=== PATIENT | female | born 1965 | race American Indian/Alaskan Native ===

== ENCOUNTER 2020-10-20 10:47 | Inpatient (IN) | payer OTHER ==
--- NOTE | 2020-10-20 10:57 | Event Note ---
ED Screening Note Date of service: 10/20/20 Time: 10:53 ED Screening Note: 55 y/o female presents complaint of generalized clumsiness with left hand weakness that started 2 days ago. Patient states she thinks she had a stroke 2 days ago. Patient was seen in urgent care was advised to be followed up in the ER patient chose to come today. Patient has a history of hypertension sciatica nerve and arthritis. Patient does not have a primary care provider. She has been following urgent care in [place]. This initial assessment/diagnostic orders/clinical plan/treatment(s) is/are subject to change based on patients health status, clinical progression and re- assessment by fellow clinical providers in the ED. Further treatment and workup at subsequent clinical providers discretion. Patient/guardian urged not to elope from the ED as their condition may be serious if not clinically assessed and managed. Initial orders include: <ROSALBA REHMAN - Last Filed: 10/20/20 10:52> ED Screening Note: This initial assessment/diagnostic orders/clinical plan/treatment(s) is/are subject to change based on patients health status, clinical progression and re- assessment by fellow clinical providers in the ED. Further treatment and workup at subsequent clinical providers discretion. Patient/guardian urged not to elope from the ED as their condition may be serious if not clinically assessed and managed. Initial orders include: called by radiology regarding acute infarction this occurred two days ago, out of tpa window advised Dr. Jorgensen, Dr. Loredo, and charge nurse clement of findings and that pt needs ER ROOM JAIME <GORDON RODRIGUEZ - Last Filed: 10/20/20 15:05>
[2020-10-20 12:04] LABS: Basophils # (Auto) 0.1 K/mm3 (0.0-0.1); Basophils % (Auto) 2.1 % (0.0-1.8); Eosinophils # (Auto) 0.1 K/mm3 (0.0-0.4); Eosinophils % (Auto) 2.3 % (0.0-4.3); Hemoglobin 13.7 gm/dl (10.1-14.3); Lymphocytes # (Auto) 2.4 K/mm3 (1.2-5.4); Lymphocytes % (Auto) 40.4 % (13.4-35.0); Mean Corpuscular HGB Conc 35 % (30-34); Mean Corpuscular Volume 91 fl (79-97); Monocytes # (Auto) 0.5 K/mm3 (0.0-0.8); Monocytes % (Auto) 7.7 % (0.0-7.3); Platelet Count 326 K/mm3 (140-440); Red Blood Count 4.28 M/mm3 (3.65-5.03); Red Cell Distribution Width 13.6 % (13.2-15.2)
[2020-10-20 12:08] LABS: Alanine Aminotransferase 23 units/L (7-56); Albumin 3.8 g/dL (3.9-5); Blood Urea Nitrogen 11 mg/dL (7-17); Calcium 9.5 mg/dL (8.4-10.2); Hemolysis Index 57
[2020-10-20 12:09] LABS: BUN/Creatinine Ratio 18
--- NOTE | 2020-10-20 15:01 | Cat Scan Report ---
CT head/brain wo con INDICATION: Weakness. TECHNIQUE: Routine CT head. All CT scans at this location are performed using CT dose reduction for A CLAY by means of automated exposure control. COMPARISON: None. FINDINGS: Intracranial: Multifocal loss of rodriguez-white matter differentiation seen within the right parietal lob e, right espinoza radiata, and right frontal lobe No intracranial hemorrhage. No extra axial collection . No hydrocephalus. No herniation. Sinuses: Paranasal sinuses and mastoid air cells are essentially clear. Orbits: Globes are intact. Calvarium: No acute fracture. IMPRESSION: 1. Multifocal acute infarctions involving the right frontal lobe, parietal lobe, and centrum semioval e. No hemorrhage. I informed the PA (Haley nava) at 1:55 Signer Name: Bartolome Lepe MD Signed: 10/20/2020 2:57 PM Workstation Name: [id number]
[2020-10-20] MEDS ORDERED: ASPIRIN 325 MG TAB PO ONE (17:42)
--- NOTE | 2020-10-20 17:49 | Emergency Department Report ---
HPI - General Chief Complaint: Neuro Symptoms/Deficit Time Seen by Provider: 10/20/20 17:29 - HPI HPI: Room 37 The patient is a 55-year-old female present with a chief complaint of left-sided weakness. The patient states 2 days ago she noticed that she was clumsy and had difficulty walking and writing secondary to weakness in her left upper extremity and left lower extremity. Patient states she was dropping things from her left hand and dragging her left leg. Patient denies paresthesia, dysphagia or dysarthria. Patient states she has had a headache for 2 days. Of note the patient states she has had a cough for the past 3 months has completed a course of antibiotics but has never had a chest x-ray performed ED Past Medical Hx - Past Medical History Previous Medical History?: Yes Hx Hypertension: Yes Additional medical history: carpal tunnel - Surgical History Additional Surgical History: - Family History Family history: no significant - Social History Smoking Status: Current Every Day Smoker (1/2 pack/day) Substance Use Type: None (Denies illicit drug use), Alcohol (Occasional) ED Review of Systems ROS: Stated complaint: POSS STROKE Other details as noted in HPI Constitutional: no symptoms reported Eyes: denies: eye pain ENT: denies: throat pain Respiratory: cough Cardiovascular: denies: chest pain Endocrine: no symptoms reported Gastrointestinal: denies: abdominal pain Genitourinary: denies: dysuria Musculoskeletal: denies: back pain Neurological: headache, weakness. denies: paresthesias Physical Exam - Physical Exam Vital Signs: Vital Signs 10/20/20 10/20/20 10:50 13:59 Pulse Rate 77 87 Respiratory 18 20 Rate Blood Pressure 179/99 Blood Pressure 164/99 [Right] O2 Sat by Pulse 99 97 Oximetry Physical Exam: GENERAL: The patient is well-developed well-nourished female lying on stretcher not appearing to be in acute distress. [] HEENT: Normocephalic. Atraumatic. Extraocular motions are intact. Patient has moist mucous membranes. NECK: Supple. Trachea midline CHEST/LUNGS: Clear to auscultation. There is no respiratory distress noted. HEART/CARDIOVASCULAR: Regular. There is no tachycardia. There is no gallop rub or murmur. ABDOMEN: Abdomen is soft, nontender. Patient has normal bowel sounds. There is no abdominal distention. SKIN: There is no rash. There is no edema. There is no diaphoresis. NEURO: The patient is awake, alert, and oriented. The patient is cooperative. Cranial nerves II through XII grossly intact with exception of cranial nerve XI on the left patient does not fully raise the left shoulder. Patient holds left upper extremity at 45 degree angle for 10-second count but the arm drifts down but never touches the bed. Patient able to hold right upper extremity at 45 degree angle for full 10-second count without drift. The patient is able to hold left lower extremity at 30 degree angle for 5-second count however the leg does drift down but never comes in contact with the bed. Patient able to hold right lower extremity at 30 degree angle for 5-second count without drift. The patient has normal speech. GCS 15. NIHSS=2 MUSCULOSKELETAL: There is no evidence of acute injury. ED Course Vital Signs 10/20/20 10/20/20 10:50 13:59 Pulse Rate 77 87 Respiratory 18 20 Rate Blood Pressure 179/99 Blood Pressure 164/99 [Right] O2 Sat by Pulse 99 97 Oximetry - Consultations Consultation #1: 10/20/20 Tele-neuro paged-Case discussed with telemetry neurologist. Recommends CTA bra in and neck and admission 10/20/20 20:40 Telemetry neuro paged 10/20/20 20:56 CTA results discussed with Dr. Rosales-recommends initiating heparin drip low intensity no bolus while keeping systolic blood pressure less than 180 ED Medical Decision Making - Lab Data Result diagrams: 10/20/20 11:02 10/20/20 11:02 Laboratory Tests 10/20/20 10/20/20 10/20/20 11:02 11:02 17:45 WBC 5.9 RBC 4.28 Hgb 13.7 Hct 39.0 MCV 91 MCH 32 MCHC 35 H RDW 13.6 Plt Count 326 Lymph % (Auto) 40.4 H Rabun % (Auto) 7.7 H Eos % (Auto) 2.3 Baso % (Auto) 2.1 H Lymph # (Auto) 2.4 Rabun # (Auto) 0.5 Eos # (Auto) 0.1 Baso # (Auto) 0.1 Seg Neutrophils % 47.5 Seg Neutrophils # 2.8 PT 12.4 INR 0.93 APTT 27.5 Thrombin Time 18.6 Sodium 137 Potassium 3.3 L Chloride 99.9 Carbon Dioxide 25 Anion Gap 15 BUN 11 Creatinine 0.6 Estimated GFR > 60 BUN/Creatinine Ratio 18 Glucose 108 H Calcium 9.5 Total Bilirubin 0.30 AST 26 ALT 23 Alkaline Phosphatase 103 Total Protein 7.0 Albumin 3.8 L Albumin/Globulin Ratio 1.2 - EKG Data -: EKG Interpreted by Me EKG shows normal: sinus rhythm Rate: normal - EKG Data When compared to previous EKG there are: previous EKG unavailable Interpretation: other (No ischemic changes seen) - Radiology Data Radiology results: report reviewed (CT head, chest x-ray), image reviewed (CT head, chest x-ray) interpreted by me: Chest x-ray-no focal infiltrates, no pneumothorax. No foreign body seen - Differential Diagnosis CVA Critical care attestation.: If time is entered above; I have spent that time in minutes in the direct care of this critically ill patient, excluding procedure time. ED Disposition Clinical Impression: CVA (cerebral vascular accident) Disposition: DC-09 OP ADMIT IP TO THIS HOSP Is pt being admited?: Yes Does the pt Need Aspirin: No Condition: Fair Referrals: PRIMARY CARE, [Primary Care Provider] - 3-5 Days Time of Disposition: 21:06 (Hospitalist paged (Dr Gupta))
[2020-10-20] MEDS ORDERED: POTASSIUM CHLORIDE ER 20 MEQ TAB PO ONE (17:53)
--- NOTE | 2020-10-20 18:17 | XRay Report ---
CHEST 1 VIEW 10/20/2020 6:06 PM INDICATION / CLINICAL INFORMATION: Cough x3-months. COMPARISON: None available. FINDINGS: SUPPORT DEVICES: None. HEART / MEDIASTINUM: No significant abnormality. LUNGS / PLEURA: No significant pulmonary or pleural abnormality. No pneumothorax. ADDITIONAL FINDINGS: No significant additional findings. IMPRESSION: No acute cardiopulmonary abnormality. Signer Name: Wing Antunez MD Signed: 10/20/2020 6:12 PM Workstation Name: [id number]
[2020-10-20 18:28] LABS: INR 0.93 (0.87-1.13)
[2020-10-20 18:29] LABS: Partial Thromboplastin Time 27.5 Sec. (24.2-36.6)
[2020-10-20 18:30] LABS: Thrombin Time 18.6 Sec. (15.1-19.6)
--- NOTE | 2020-10-20 19:07 | Consultation ---
History of Present Illness History of present illness: [facility] Consult Note # Demographics Consult Type: ED Teleneuro First Name: Edie Last Name: Tadeo Date of : 1965 Age: 55 Gender: female Time of initial page ( Time): 10-20-2020, 16:15 Time of return call ([place] Time): 10-20-2020, 16:20 # HPI Additional History: 55 year-old female presents with left-sided weakness over the last [address] revealed subacute right frontal and parietal ischemic strokes. # PMH-FH-SH Past Medical History: hypertension # Exam Vitals: vital signs reviewed # Data Head CT: subacute ischemic stroke # Assessment Impression: Subacute right frontal-parietal ischemic strokes # Plan Thrombolytic/Intervention: NOT IV Alteplase or IA Intervention Alteplase Exclusion: > 4.5 hours Intraarterial Exclusion: unfavorable imaging/hypodensity Labs: hemoglobin A1c, lipid panel Imaging: (urgency: STAT in ED): CT Angiogram Head and CT Angiogram Neck Imaging: (urgency: routine admission): MRI Brain without contrast Diagnostic Test: echo with bubble study Therapy/Evaluation: NPO until swallow evaluation, PT/OT evaluation, speech/swallow consultation Medication: aspirin 325 mg daily, start statin with goal of LDL < 70 Other: telemetry monitoring, I have discussed my recommendations with the referring provider Disposition: admit Medications and Allergies Allergies Allergy/AdvReac Type Severity Reaction Status Date / Time No Known Allergies Allergy Unverified 10/20/20 10:50 Physical Examination - Vital Signs Vital Signs: Vital Signs Pulse Resp BP Pulse Ox 77 18 164/99 99 10/20/20 10:50 10/20/20 10:50 10/20/20 10:50 10/20/20 10:50 Results - Laboratory Findings CBC and BMP: 10/20/20 11:02 10/20/20 11:02 Abnormal Lab Findings: Abnormal Labs 10/20/20 10/20/20 11:02 11:02 MCHC 35 H Lymph % (Auto) 40.4 H Davis % (Auto) 7.7 H Baso % (Auto) 2.1 H Potassium 3.3 L Glucose 108 H Albumin 3.8 L
--- NOTE | 2020-10-20 20:47 | Cat Scan Report ---
CTA neck without and with intravenous contrast material CLINICAL HISTORY: Left-sided weakness TECHNIQUE: Following acquisition of a timing bolus 0.625 mm thick contiguous axial scans were obtained from aort ic arch to the skull base during rapid bolus intravenous contrast infusion. In addition to evaluation of axial source images multiplanar reconstructions were produced and reviewed for this report. 3 jasmeet ne MIP reconstructions were produced and reviewed. Contrast dose report: Omnipaque 350: 100 ml, administered intravenously All CT examinations performed at this facility utilize modulated dose reduction, iterative reconstruc tion or weight-based dosing, as appropriate, to obtain a radiation dose which is as low as can reason ably be achieved. FINDINGS: Thoracic aorta:No abnormalities are identified along the course of the thoracic aorta..The origins of the great vessels have an unremarkable appearance. Brachiocephalic artery, left common carotid arter y origin and left subclavian artery all have an unremarkable appearance. Right carotid artery: Right common carotid artery has an unremarkable appearance. There is complete o cclusion of the right internal carotid artery within about 18 mm of its origin. Small filling defects are seen within the lumen. This could represent an artifact of turbulent flow versus a thromboemboli c lesion. There is no reconstitution of contrast opacification of the R ICA until the ophthalmic segm ent is opacified likely due to retrograde flow. Left carotid artery: No abnormalities are noted along the course of the left common carotid artery, a t the left carotid bifurcation or along the course of the cervical segments of the LICA. Posterior circulation:The vertebral arteries have an unremarkable appearance. Both vertebral arteries contribute to the basilar artery origin. The basilar artery has an unremarkable appearance. The degree of stenosis, if any, is determined utilizing NASCET like criteria. In this case there is complete occlusion of the cervical segments of the right internal carotid artery. Evaluation of the nonvascular soft tissue structures reveal no abnormality. There is no indication of cervical lymphadenopathy. No abnormalities are seen along the course of the airway. Visualized porti ons of the parotid glands and the submandibular salivary glands have a normal appearance. Thyroid gla nd has a normal appearance. Evaluation of the lung apices reveals no evidence of lung nodule or infil trate. Evaluation of the cervical spine is remarkable for evidence of early ossification of the posterior lo ngitudinal ligament dorsal to the C4, C5 and C6 vertebral bodies. In addition there is evidence of a partially calcified disc herniation at the C4-5 level where decreased AP diameter of the spinal canal is noted. AP diameter of the canal is less than 7 mm consistent with moderate central canal stenosis . Further evaluation with MRA cervical spine is suggested when the patient's condition permits. IMPRESSION: 1. Complete occlusion of the R ICA beginning about 2 cm distal to its origin extending up to the orig in of the right ophthalmic artery. 2. Findings indicate probable disc herniation at C4-5 as described above. 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 IMPORTANT FINDING: Time of Communication (SPORTS REPORTER/CDT): 1939 central standard time Licensed Practitioner Receiving Report: Dr. Connolly of the [facility] emergency de partment. Signer Name: Patrice Herrera MD Signed: 10/20/2020 8:43 PM Workstation Name: [id number]
--- NOTE | 2020-10-20 20:52 | Cat Scan Report ---
CTA head with intravenous contrast CLINICAL HISTORY: Left-sided weakness TECHNIQUE: 0.625 mm thick contiguous axial scans were obtained from the skull base to the skull vertex during r apid bolus administration of intravenous contrast material. Multiplanar reconstructions were produced in the coronal and sagittal planes. In addition 3 plane MIP instructions were produced and reviewed for this report. The axial source images and reconstructed images were reviewed for this report. CONTRAST DOSE REPORT: Omnipaque 350: 100 ml administered intravenously. All CT scans at this location are performed using CT dose reduction for ALARA by means of automated e xposure control. FINDINGS: Internal carotid arteries: Occlusion of the distal cervical intracranial segments of the R ICA is obs erved. Reconstitution of contrast opacification of the R ICA the ophthalmic artery origin. The LICA h as an unremarkable appearance. Middle cerebral arteries: The right M1 segment is decreased size compared to the left likely related to occlusion of the cervical segments and proximal intracranial segments of the R ICA. There is no in dication of large vessel occlusion in the right middle cerebral artery circulation. Anterior cerebral arteries: Asymmetry of the A1 segments anterior cerebral arteries is noted left sli ghtly larger than right. No abnormalities are seen along the course of the A2 segments. Vertebral arteries:Bilaterally symmetrical vertebral arteries are demonstrated. Both vertebral arteri es contribute to the basilar artery origin. Basilar artery: Basilar artery is diminutive in caliber. This appears to be due in large part to feta l origin of both posterior cerebral arteries. Posterior cerebral arteries: origin of the posterior cerebral arteries is demonstrated bilatera lly. Posterior cerebral arteries have an otherwise normal and symmetrical appearance. Dural sinuses: Dural venous sinuses are well demonstrated on this exam. There is no evidence of dural sinus thrombosis. IMPRESSION: 1. Decreased caliber of the M1 segment of the right middle cerebral artery is observed. This is likel y related to complete occlusion of the cervical segments and proximal intracranial segments of the R ICA as described above. Signer Name: Patrice Herrera MD Signed: 10/20/2020 8:47 PM Workstation Name: [id number]
[2020-10-20] MEDS ORDERED: HEPARIN/ 0.45% NACL DRIP 25,000 UNIT/500 ML BAG IV SCH (21:00)
[2020-10-20] MEDS ORDERED: hydrALAZINE 20 MG/1 ML INJ IV ONE (21:32)
[2020-10-20 21:40] LABS: INR 0.92 (0.87-1.13); Partial Thromboplastin Time 26.5 Sec. (24.2-36.6)
[2020-10-20] MEDS ORDERED: MAGNESIUM HYDROXIDE (MOM) ORAL LIQD UDC PO PRN ×2 (21:56)
[2020-10-20] MEDS ORDERED: METOCLOPRAMIDE 10 MG TAB PO PRN (21:56)
[2020-10-20] MEDS ORDERED: ONDANSETRON 4 MG/2 ML INJ IV PRN ×2 (21:56)
[2020-10-20] MEDS ORDERED: PROMETHAZINE 25 MG RECT SUPP PR PRN (21:56)
[2020-10-20] MEDS ORDERED: ACETAMINOPHEN 325 MG TAB PO PRN (21:56)
--- NOTE | 2020-10-20 22:07 | History and Physical Report ---
History of Present Illness Date of examination: 10/20/20 Date of admission: 10/20/20 21:31 Chief complaint: Left sided weakness History of present illness: 55-year-old female with known history of hypertension presenting to the emergency room today complaining of headache and left-sided weakness which has been ongoing for about 2 days. Patient states that she has been having difficulty walking and writing with her left hand secondary to the weakness in the left upper extremity and left lower extremity. She denies any slurred speech, denies any difficulty swallowing, denies any blurry vision and no paresthesia. Patient also indicates that she has had some mild cough on and off over the past 3 months and she had just finished a course of antibiotics that was prescribed for her. She denies any fever, no chills, no chest pain or shortness of breath, no nausea or vomiting and no abdominal pain. Work-up in the emergency room today chest x-ray was unremarkable. Labs were significant for mild hypokalemia of 3.3. CT scan of the head reveals: Multifocal acute infarctions involving the right frontal lobe, parietal lobe and central semiovale, no hemorrhage. CTA of the head and neck reveals: Complete occlusion of the right internal carotid beginning about 2 cm distal to its origin extending up to the origin of the right ophthalmic artery. Findings indicate probable disc herniation at C4-C5. 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 Tele-neurologist was consulted and the recommendation was to commence patient on heparin drip. Patient is being admitted with CVA. Past History Past Medical History: hypertension Past Surgical History: Other (Carpal tunnel surgery) Social history: smoking (Current daily smoker) Family history: no significant family history Medications and Allergies Allergies Allergy/AdvReac Type Severity Reaction Status Date / Time No Known Allergies Allergy Unverified 10/20/20 10:50 Home Medications Medication Instructions Recorded Confirmed Last Taken Type Lisinopril/Hydrochlorothiazide 1 tab PO QDAY 10/20/20 10/20/20 Unknown History [Zestoretic 20-12.5 mg] Active Meds: Active Medications Heparin Sodium/Sodium Chloride (Heparin/ 0.45% Nacl-25,000 Unit/500 Ml) 25,000 unit in 500 mls @ 29 mls/hr IV TITR HAMMDA; Protocol Last Admin: 10/20/20 21:42 Dose: 1,450 units/hr, 29 mls/hr Documented by: Review of Systems Constitutional: no fever, no chills Ears, nose, mouth and throat: no nasal congestion, no sore throat Cardiovascular: no chest pain, no palpitations Respiratory: no cough, no shortness of breath Gastrointestinal: no abdominal pain, no nausea, no vomiting, no diarrhea Genitourinary Female: no pelvic pain, no flank pain, no dysuria, no hematuria Musculoskeletal: no neck pain, no low back pain Integumentary: no rash, no pruritis Neurological: weakness (Left sided ), no headaches, no confusion Psychiatric: no anxiety, no depression Exam - Constitutional Vitals: Temp Pulse Resp BP Pulse Ox 98.2 F 71 15 184/95 99 10/20/20 21:09 10/20/20 21:34 10/20/20 21:09 10/20/20 21:34 10/20/20 21:09 General appearance: Present: no acute distress, well-nourished - EENT Eyes: Present: PERRL, EOM intact. Absent: scleral icterus ENT: hearing intact, clear oral mucosa, dentition normal - Neck Neck: Present: supple, normal ROM - Respiratory Respiratory effort: normal Respiratory: bilateral: CTA - Cardiovascular Rhythm: regular Heart Sounds: Present: S1 & S2. Absent: gallop, systolic murmur, diastolic murmur, rub, click - Extremities Extremities: no ischemia, pulses intact, pulses symmetrical, No edema, normal temperature, normal color, Full ROM Peripheral Pulses: within normal limits - Abdominal General gastrointestinal: Present: soft, non-tender, non-distended, normal bowel sounds. Absent: mass - Integumentary Integumentary: Present: clear, warm, dry. Absent: rash - Musculoskeletal Musculoskeletal: left sided weakness - Psychiatric Psychiatric: appropriate mood/affect, intact judgment & insight, memory intact, cooperative - Neurologic Neurologic: CNII-XII intact, no focal deficits, moves all extremities (With weakness in left upper extremity and left lower extremity.) Results - Labs CBC & Chem 7: 10/20/20 11:02 10/20/20 11:02 Labs: Abnormal lab results 10/20/20 10/20/20 Range/Units 11: 11: MCHC 35 H (30-34) % Lymph % (Auto) 40.4 H (13.4-35.0) % Jewell % (Auto) 7.7 H (0.0-7.3) % Baso % (Auto) 2.1 H (0.0-1.8) % Potassium 3.3 L (3.6-5.0) mmol/L Glucose 108 H (65-100) mg/dL Albumin 3.8 L (3.9-5) g/dL Assessment and Plan - Patient Problems (1) CVA (cerebral vascular accident) Current Visit: Yes Status: Acute Plan to address problem: Patient admitted and placed on telemetry. Will commence patient on aspirin and statin. Patient will be scheduled for echocardiogram and MRI of the brain. Consult placed to neurology for follow-up. (2) Hypertension Current Visit: Yes Status: Acute Plan to address problem: We will resume routine home medications and monitor vital signs closely. (3) DVT prophylaxis Current Visit: Yes Status: Acute Plan to address problem: Patient currently on anticoagulation with heparin. (4) Full code status Current Visit: Yes Status: Acute Plan to address problem: Patient is full code.
[2020-10-21] MEDS: MORPHINE 2 MG/1 ML INJ IV PRN ×2 (04:05→07:47)
[2020-10-21 04:13] LABS: Basophils # (Auto) 0.1 K/mm3 (0.0-0.1); Basophils % (Auto) 1.5 % (0.0-1.8); Eosinophils # (Auto) 0.2 K/mm3 (0.0-0.4); Eosinophils % (Auto) 2.1 % (0.0-4.3); Hematocrit 38.4 % (30.3-42.9); Hemoglobin 13.4 gm/dl (10.1-14.3); Lymphocytes # (Auto) 2.8 K/mm3 (1.2-5.4); Lymphocytes % (Auto) 39.8 % (13.4-35.0); Mean Corpuscular HGB Conc 35 % (30-34); Mean Corpuscular Volume 93 fl (79-97); Monocytes # (Auto) 0.6 K/mm3 (0.0-0.8); Monocytes % (Auto) 8.4 % (0.0-7.3); Platelet Count 309 K/mm3 (140-440); Red Blood Count 4.14 M/mm3 (3.65-5.03); Red Cell Distribution Width 13.6 % (13.2-15.2)
[2020-10-21 04:22] LABS: INR 0.94 (0.87-1.13)
[2020-10-21 04:40] LABS: Blood Urea Nitrogen 10 mg/dL (7-17); Calcium 9.3 mg/dL (8.4-10.2); Chol/HDL Ratio 4.73 %; HDL Cholesterol 46 mg/dL (40-59); Hemolysis Index 8; LDL Cholesterol,Direct 169 mg/dL (50-130)
[2020-10-21 04:41] LABS: BUN/Creatinine Ratio 17
[2020-10-21] MEDS: ACETAMINOPHEN 325 MG TAB PO PRN ×3 (06:26→21:21)
--- NOTE | 2020-10-21 08:36 | Consultation ---
History of Present Illness Consult date: 10/21/20 Reason for Consult: CVA Chief complaint: Left hand weakness History of present illness: 55 yo female with htn, sciatica, tobacco abuse, who presents with c/o 2 days (prior to ED arrival) of left hand/arm weakness. NCHCT revealed multiple infarcts in the right cerebral hemisphere with an ipsilateral RADHA occlusion on CTA. Patient was initiated on a no bolus, low dose Heparin gtt by telestroke neurologist. Past History Past Medical History: hypertension, other (sciatica) Past Surgical History: Other (Carpal tunnel surgery) Social history: smoking (Current daily smoker) Family history: no significant family history Medications and Allergies Allergies Allergy/AdvReac Type Severity Reaction Status Date / Time No Known Allergies Allergy Unverified 10/20/20 10:50 Home Medications Medication Instructions Recorded Confirmed Last Taken Type Lisinopril/Hydrochlorothiazide 1 tab PO QDAY 10/20/20 10/20/20 Unknown History [Zestoretic 20-12.5 mg] Active Meds: Active Medications Acetaminophen (Acetaminophen 325 Mg Tab) 650 mg PO Q4H PRN PRN Reason: Pain MILD(1-3)/Fever >100.5/FRITZ Last Admin: 10/21/20 06:26 Dose: 650 mg Documented by: Aspirin (Aspirin 325 Mg Tab) 325 mg PO QDAY [facility] Atorvastatin Calcium (Atorvastatin 40 Mg Tab) 40 mg PO QHS [facility] Last Admin: 10/20/20 22:30 Dose: 40 mg Documented by: Bisacodyl (Bisacodyl 10 Mg Rect Supp) 10 mg NV QDAY PRN PRN Reason: Constipation Heparin Sodium/Sodium Chloride (Heparin/ 0.45% Nacl-25,000 Unit/500 Ml) 25,000 unit in 500 mls @ 29 mls/hr IV TITR [facility]; Protocol Last Titration: 10/21/20 06:21 Dose: 1,350 units/hr, 27 mls/hr Documented by: Magnesium Hydroxide (Magnesium Hydroxide (Mom) Oral Liqd Udc) 30 ml PO Q4H PRN PRN Reason: Constipation Metoclopramide HCl (Metoclopramide 10 Mg Tab) 10 mg PO Q6H PRN PRN Reason: Nausea And Vomiting Morphine Sulfate (Morphine 2 Mg/1 Ml Inj) 2 mg IV Q4H PRN PRN Reason: Pain, Moderate (4-6) Last Admin: 10/21/20 07:47 Dose: 2 mg Documented by: Ondansetron HCl (Ondansetron 4 Mg/2 Ml Inj) 4 mg IV Q8H PRN PRN Reason: Nausea And Vomiting Promethazine HCl (Promethazine 25 Mg Rect Supp) 25 mg NV Q6H PRN PRN Reason: Nausea And Vomiting Sodium Chloride (Sodium Chloride 0.9% 10 Ml Flush Syringe) 10 ml IV BID [facility] Last Admin: 10/20/20 22:30 Dose: 10 ml Documented by: Sodium Chloride (Sodium Chloride 0.9% 10 Ml Flush Syringe) 10 ml IV PRN PRN PRN Reason: LINE FLUSH Review of Systems All systems: negative (as per HPI;) Physical Examination - Vital Signs Vital Signs: Vital Signs Pulse Resp BP Pulse Ox 77 18 164/99 99 10/20/20 10:50 10/20/20 10:50 10/20/20 10:50 10/20/20 10:50 - Physical Exam Narrative exam: Gen: nad, well-nourished; Head: normocephalic; Eyes: no gaze deviation; no ptosis; ENT: normal vocalization; CVS: warm and well-perfused; Pulm: no respiratory distress; GI: appears non-distended, protuberant; Ext: no cyanosis at distal extremities; Skin: no acute rash or hives at distal extremities; Heme: no pathologic bruising at distal extremities; Neuro: alert, oriented to name, age, month, year, , no dysarthria, no aphasia, CN 2 - PERRL, visual reeder intact, CN 3, 4, 6 - EOMI, CN 5 - facial sensation symmetric to light touch, CN 7 - facial movement symmetric, CN 8 - hearing grossly intact, CN 9, 10 - uvula midline, CN 11 - shrug symmetric, CN 12 - tongue midline; Motor - at least 4/5 in all exts w/ left arm drift; left plantar flexion is 4/5; Sensory - light touch decreased at left hand/fingers, Cerebellar - fnf /hts intact, +dysdiadochokinesia; Gait - deferred secondary to fall risk; NIHSS (1a.) Level of Consciousness:0 (1b.) LOC Questions:0 (1c.) LOC Commands:0 (2.) Best Gaze:0 (3.) Visual:0 (4.) Facial Palsy:0 (5a.) Motor Arm, Left:1 (5b.) Motor Arm, Right:0 (6a.) Motor Leg, Left:1 (6b.) Motor Leg, Right:0 (7.) Limb Ataxia:0 (8.) Sensory:1 (9.) Best Language:0 (10.) Dysarthria:0 (11.) Extinction and Inattention:0 NIHSS Total Score: 3 Results - Laboratory Findings CBC and BMP: 10/21/20 03:42 10/21/20 03:42 Abnormal Lab Findings: Abnormal Labs 10/20/20 10/20/20 10/21/20 11:02 11:02 03:42 MCHC 35 H 35 H Lymph % (Auto) 40.4 H 39.8 H Lea % (Auto) 7.7 H 8.4 H Baso % (Auto) 2.1 H Potassium 3.3 L Glucose 108 H Albumin 3.8 L Triglycerides Cholesterol LDL Cholesterol Direct 10/21/20 03:42 MCHC Lymph % (Auto) Lea % (Auto) Baso % (Auto) Potassium 3.4 L Glucose 122 H Albumin Triglycerides 153 H Cholesterol 218 H LDL Cholesterol Direct 169 H Assessment and Plan 55 yo female with htn, sciatica, tobacco abuse who presents with acute ischemic strokes involving the right frontal / parietal hemispheres in the setting of a RADHA occlusion. 1. Acute Ischemic Stroke: stopped heparin gtt; ASA 325 mg PO qday, 1st dose today (to be given 1 hour after Heparin gtt is stopped), Plavix 75 mg po qday x 21 days, 1st dose tomorrow; MRI Brain w/o contrast, TTEcho, confirm LDL/TSH, telemetry, SBP goal 160-200 mmHg and DBP 80-100 mmHg for now. Statin therapy for a goal LDL of 70, when patient passes swallow evaluation. PT/OT/ST/Swallow evaluation. Long-term risk-factor modification, including a strict diet/exercise regimen for secondary stroke prophylaxis. 2. Hypertension - goal SBP 160-200 mmHg and DBP 80-100 mmHg for 48 more hours. 3. RADHA Occlusion - antiplatelet/statin therapy. 4. Left-sided weakness / left hand numbness - pt/ot evaluation/monitoring. 5. Tobacco Abuse - smoking cessation program via pcp. Shamar Zacarias MD Neurology
[2020-10-21] MEDS: ASPIRIN 325 MG TAB PO SCH (09:59)
--- NOTE | 2020-10-21 13:07 | Vascular Lab Report ---
"DUPLEX DOPPLER ULTRASOUND CAROTID, BILATERAL INDICATION / CLINICAL INFORMATION: stroke. COMPARISON: None available. FINDINGS: RIGHT CAROTID: Occluded Right Vertebral Artery: Antegrade flow. LEFT CAROTID: - PLAQUE ESTIMATE: < 50% - CCA velocity: 74 cm/sec. - ICA peak systolic velocity: 75 cm/sec. - ICA/CCA PSV Ratio: 1.0 Left Vertebral Artery: Antegrade flow. IMPRESSION: 1. Right Internal Carotid Artery: Occluded in its midportion 2. Left Internal Carotid Artery: Less than 50% diameter stenosis. Velocity criteria are extrapolated from diameter data as defined by the Society of Radiologists in [facility] Consensus Conference, Radiology 2003; 229;340-346. Degree of || ICA PSV || Plaque || ICA/CCA Stenosis (%) || (cm/sec) || estimate (%) || PSV Ratio Normal ............. || ...<125........... || ...None......... || ...<2.0 <50................... || ...<125........... || ......<50......... || ...<2.0 50-69................ || ..125-230...... || ......>50......... || 2.0-4.0 >70 but <100... || >230.............. || .......>50........ || ...>4.0 Near occlusion || High/low/none || ...visible....... || variable Total occlusion || ....None........... || ..no lumen... || ....N/A Signer Name: Rishi LOPES Signed: 10/21/2020 1:02 PM Workstation Name: [id number]"
--- NOTE | 2020-10-21 15:46 | Magnetic Resonance Report ---
MR brain wo con INDICATION / CLINICAL INFORMATION: 55 years Female; MAIN. TECHNIQUE: Multiplanar, multisequence MR images of the brain were obtained. Motion artifact COMPARISON: 10/20/2020-CT FINDINGS: BRAIN / INTRACRANIAL CONTENTS: Patchy areas of ischemia are seen in the watershed distribution of the right cerebral hemisphere. These findings are positive on ADC map, suggesting they are acute/subacut e in age, most likely related to findings on patient's recent CTA of the neck, which demonstrated an occluded right internal carotid artery. Otherwise, no acute hemorrhage, mass effect, midline shift, hydrocephalus, or acute, large territori al infarct. No chronic infarct or atrophy. No significant white matter abnormality. CRANIOCERVICAL JUNCTION: No significant abnormality. VASCULAR FLOW-VOIDS: Hyperintense T2 signal seen in the right internal carotid artery suggesting slow or absent flow-this finding is confirmed on recent CTA from 10/20/2020, as well. ORBITS: No significant abnormality of visualized orbits. SINUSES / MASTOIDS: Mild to moderate mucosal thickening seen in the ethmoids. There is partial opacif ication of the sphenoid sinuses. ADDITIONAL FINDINGS: None. IMPRESSION: 1. Ischemic changes in the watershed distribution of the right cerebral hemisphere as described above . Signer Name: Daryn Quiñones MD, III Signed: 10/21/2020 3:41 PM Workstation Name: [id number]
[2020-10-21] MEDS ORDERED: ACETAMINOPHEN 325 MG/10.15 ML ORAL LIQD UNIT DOSE ONE (16:47)
[2020-10-21] MEDS ORDERED: hydrALAZINE 20 MG/1 ML INJ IV PRN (18:30)
--- NOTE | 2020-10-21 18:53 | Progress Note ---
Assessment and Plan Assessment and Plan - Patient Problems (1) CVA (cerebral vascular accident) Current Visit: Yes Status: Acute Plan to address problem: Patient admitted and placed on telemetry. Will commence patient on aspirin and statin. Patient will be scheduled for echocardiogram and MRI of the brain. Consult placed to neurology for follow-up. (2) Hypertension Current Visit: Yes Status: Acute Plan to address problem: We will resume routine home medications and monitor vital signs closely. (3) DVT prophylaxis Current Visit: Yes Status: Acute Plan to address problem: Patient currently on anticoagulation with heparin. (4) Full code status Current Visit: Yes Status: Acute Plan to address problem: Patient is full code. - Patient Problems (1) CVA (cerebral vascular accident) Current Visit: Yes Status: Acute Qualifiers: CVA mechanism: thrombosis Laterality of affected vessel: right Plan to address problem: Right cerebral ischemia in the watershed area (2) Hypertension Current Visit: Yes Status: Chronic Qualifiers: Hypertension type: essential hypertension Qualified Code(s): I10 - Essential (primary) hypertension Plan to address problem: Blood pressure poorly controlled Add valsartan and stop the lisinopril Add Coreg if necessary (3) Hyperlipidemia Current Visit: Yes Status: Chronic Qualifiers: Hyperlipidemia type: mixed hyperlipidemia Qualified Code(s): E78.2 - Mixed hyperlipidemia Plan to address problem: Continue statin (4) DVT prophylaxis Current Visit: Yes Status: Acute Plan to address problem: On heparin and GI prophylaxis Subjective Date of service: 10/21/20 Principal diagnosis: Acute CVA Interval history: 55 yo female with htn, sciatica, tobacco abuse, who presents with c/o 2 days (prior to ED arrival) of left hand/arm weakness. NCHCT revealed multiple infarcts in the right cerebral hemisphere with an ipsilateral RADHA occlusion on CTA. Patient was initiated on a no bolus, low dose Heparin gtt by telestroke neurologist. Able to move all 4 extremities MRI pending Objective - Constitutional Vitals: Vital Signs - 12hr 10/21/20 10/21/20 10/21/20 07:00 07:50 07:51 Temperature 98.2 F Pulse Rate 69 74 Respiratory 14 15 16 Rate Blood Pressure 182/92 Blood Pressure 182/92 [Right] O2 Sat by Pulse 95 100 100 Oximetry 10/21/20 10/21/20 10/21/20 08:00 09:00 10:00 Temperature Pulse Rate 85 109 H 81 Respiratory 14 13 12 Rate Blood Pressure 182/92 171/79 176/80 Blood Pressure [Right] O2 Sat by Pulse 98 99 Oximetry 10/21/20 10/21/20 10/21/20 11:00 14:22 14:26 Temperature 97.9 F Pulse Rate 58 L 67 Respiratory 13 17 Rate Blood Pressure 158/80 Blood Pressure 173/86 [Right] O2 Sat by Pulse 99 99 100 Oximetry 10/21/20 10/21/20 10/21/20 15:00 16:00 16:20 Temperature 97.9 F Pulse Rate 60 66 68 Respiratory 16 14 14 Rate Blood Pressure 173/90 168/85 168/85 Blood Pressure 173/86 [Right] O2 Sat by Pulse 97 96 97 Oximetry 10/21/20 10/21/20 10/21/20 16:30 16:40 16:50 Temperature Pulse Rate 82 75 72 Respiratory 16 16 19 Rate Blood Pressure 168/85 168/85 168/85 Blood Pressure [Right] O2 Sat by Pulse 99 97 97 Oximetry 10/21/20 10/21/20 10/21/20 17:00 17:10 17:20 Temperature Pulse Rate 79 65 74 Respiratory 17 13 16 Rate Blood Pressure 168/85 168/85 168/85 Blood Pressure [Right] O2 Sat by Pulse 99 99 100 Oximetry 10/21/20 17:42 Temperature 98.3 F Pulse Rate 81 Respiratory 18 Rate Blood Pressure Blood Pressure 175/94 [Right] O2 Sat by Pulse 98 Oximetry General appearance: Present: no acute distress, well-nourished - EENT Eyes: PERRL, EOM intact ENT: hearing intact, clear oral mucosa Ears: bilateral: normal - Neck Neck: supple, normal ROM - Respiratory Respiratory effort: normal Respiratory: bilateral: CTA - Breasts Breasts: normal - Cardiovascular Heart rate: 78 Rhythm: regular Heart Sounds: Present: S1 & S2. Absent: gallop, rub Extremities: no ischemia, pulses intact, No edema, normal color, Full ROM - Gastrointestinal General gastrointestinal: Present: soft, non-tender, non-distended, normal bowel sounds - Genitourinary Female genitourinary: normal - Integumentary Integumentary: clear, warm, dry - Musculoskeletal Musculoskeletal: 1, strength equal bilaterally - Neurologic Neurologic: moves all extremities, gait normal, other (Slight weakness in the left lower extremity) - Psychiatric Psychiatric: memory intact, appropriate mood/affect, intact judgment & insight - Allied health notes Allied health notes reviewed: nursing, case management - Labs CBC & Chem 7: 10/21/20 03:42 10/21/20 03:42 Labs: Abnormal lab results 10/21/20 10/21/20 10/21/20 Range/Units 03:42 03:42 10:35 MCHC 35 H (30-34) % Lymph % (Auto) 39.8 H (13.4-35.0) % [place] % (Auto) 8.4 H (0.0-7.3) % Heparin Anti-Xa Level 0.74 H (0.3-0.7) U.I./ml Potassium 3.4 L (3.6-5.0) mmol/L Glucose 122 H (65-100) mg/dL Triglycerides 153 H (2-149) mg/dL Cholesterol 218 H (50-199) mg/dL LDL Cholesterol Direct 169 H (50-130) mg/dL
[2020-10-22] MEDS: ACETAMINOPHEN 325 MG TAB PO PRN (07:57)
[2020-10-22] MEDS: ASPIRIN 325 MG TAB PO SCH (09:13)
[2020-10-22] MEDS ORDERED: CLOPIDOGREL 75 MG TAB PO SCH (10:00)
--- NOTE | 2020-10-22 14:25 | Discharge Summary ---
Providers - Providers Date of Admission: 10/20/20 21:31 Date of discharge: 10/22/20 Attending physician: RADHA BUI 10/20/20 Consult to Physician [CONS] Routine Comment: Consulting Provider: RAYMUNDO LANTIGUA Physician Instructions: Reason For Exam: CVA 10/20/20 21:56 Consult to Dietitian/Nutrition [CONS] Routine Physician Instructions: Reason For Exam: Reason for Consult: Nutrition Recommendations Reason for Consult: Diet education Occupational Therapy Evaluate and Treat [CONS] Routine Comment: Reason For Exam: Neuro deficits Physical Therapy Evaluation and Treat [CONS] Routine Comment: Reason For Exam: Neuro deficits 10/20/20 21:57 Speech Therapy Evaluation and Treat [CONS] Routine Reason For Exam: swallow eval Primary care physician: MOLDER CLOSED MOLDS Hospitalization Condition: Fair Procedures: MR brain Ischemic changes in the watershed distribution of the right cerebral hemisphere as described Echocardiogram LV ejection fraction 55 to 60% Left ventricular systolic function is normal Carotid duplex scan Left internal carotid artery less than 50% diameter stenosis right internal carotid artery occluded in its midportion CT head Complete occlusion of the right internal carotid artery beginning about 2 cm distal to its origin extending up to the origin of the right ophthalmic artery Findings indicate probable disc herniation at C4-C5 as indicated above in addition there is 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 Hospital course: 55 yo female with htn, sciatica, tobacco abuse, who presents with c/o 2 days (prior to ED arrival) of left hand/arm weakness. NCHCT revealed multiple infarcts in the right cerebral hemisphere with an ipsilateral RADHA occlusion on CTA. Patient was initiated on a no bolus, low dose Heparin gtt by telestroke neurologist. Subjective Date of service: 10/22/20 Principal diagnosis: Acute CVA Interval history: 55 yo female with htn, sciatica, tobacco abuse, who presents with c/o 2 days (prior to ED arrival) of left hand/arm weakness. NCHCT revealed multiple infarcts in the right cerebral hemisphere with an ipsilateral RADHA occlusion on CTA. Patient was initiated on a no bolus, low dose Heparin gtt by telestroke neurologist. Able to move all 4 extremities MRI pending Assessment and Plan - Patient Problems (1) CVA (cerebral vascular accident) Current Visit: Yes Status: Acute Plan to address problem: Patient has ischemic changes in the watershed area of the right cerebral hemisphere Patient being discharged on aspirin and Plavix and physical therapy (2) Hypertension Current Visit: Yes Status: Acute Plan to address problem: Valsartan 160 twice daily (3) DVT prophylaxis Current Visit: Yes Status: Acute Plan to address problem: Patient currently on anticoagulation with heparin. (4) Full code status Current Visit: Yes Status: Acute Plan to address problem: Patient is full code. - Patient Problems (1) CVA (cerebral vascular accident) Current Visit: Yes Status: Acute Qualifiers: CVA mechanism: thrombosis Laterality of affected vessel: right Plan to address problem: Right cerebral ischemia in the watershed area (2) Hypertension Current Visit: Yes Status: Chronic Qualifiers: Hypertension type: essential hypertension Qualified Code(s): I10 - Essential (primary) hypertension Plan to address problem: Blood pressure poorly controlled Add valsartan and stop the lisinopril Add Coreg if necessary (3) Hyperlipidemia Current Visit: Yes Status: Chronic Qualifiers: Hyperlipidemia type: mixed hyperlipidemia Qualified Code(s): E78.2 - Mixed hyperlipidemia Plan to address problem: Continue statin (4) DVT prophylaxis Current Visit: Yes Status: Acute Plan to address problem: On heparin and GI prophylaxis Disposition: DC-01 TO HOME OR SELFCARE - Discharge Diagnoses (1) CVA (cerebral vascular accident) Status: Acute Qualifiers: CVA mechanism: thrombosis Laterality of affected vessel: right Comment: Has slight left lower extremity weakness But otherwise normal Neurology consult appreciated Patient being discharged on aspirin and Plavix (2) Hypertension Status: Chronic Qualifiers: Hypertension type: essential hypertension Qualified Code(s): I10 - Essential (primary) hypertension Comment: Valsartan 160 mg twice a day (3) Hyperlipidemia Status: Chronic Qualifiers: Hyperlipidemia type: mixed hyperlipidemia Qualified Code(s): E78.2 - Mixed hyperlipidemia Comment: Continue statins (4) DVT prophylaxis Status: Acute Comment: On heparin and GI prophylaxis Core Measure Documentation - Palliative Care Palliative Care/ Comfort Measures: Not Applicable - Core Measures Any of the following diagnoses?: none Exam - Constitutional Vitals: Temp Pulse Resp BP Pulse Ox 97.7 F 76 18 151/89 92 10/22/20 08:13 10/22/20 12:00 10/22/20 08:13 10/22/20 08:13 10/22/20 08:13 General appearance: Present: no acute distress, well-nourished - EENT Eyes: Present: PERRL ENT: hearing intact, clear oral mucosa - Neck Neck: Present: supple, normal ROM - Respiratory Respiratory effort: normal Respiratory: bilateral: CTA - Cardiovascular Rhythm: regular (80) Heart Sounds: Present: S1 & S2. Absent: rub, click - Extremities Extremities: pulses symmetrical, No edema Peripheral Pulses: within normal limits - Abdominal General gastrointestinal: Present: deferred, soft, non-tender, non-distended, normal bowel sounds Female genitourinary: Present: normal - Integumentary Integumentary: Present: clear, warm, dry - Musculoskeletal Musculoskeletal: gait normal, strength equal bilaterally - Psychiatric Psychiatric: appropriate mood/affect, intact judgment & insight - Neurologic Neurologic: CNII-XII intact, moves all extremities - Allied Health Allied health notes reviewed: nursing, case management Plan Follow up with: PRIMARY CAREMD [Primary Care Provider] - 3-5 Days SRIDHAR MIJARES MD [Staff Physician] - 7 Days
[2020-10-22 14:37] VITALS: BP 156/102
[2020-10-22] MEDS ORDERED: VALSARTAN 160MG TAB PO ONE (14:55)
== END 2020-10-22 15:18 | disposition home health service (06) | DRG 65 ==
LOC: ED 10:47 → 4A 21:31
PROVIDERS: ADMIT Internal Medicine Geriatric Medicine; ATTEND Internal Medicine
DX: I63.9 Cerebral infarction, unspecified (principal); G81.94 Hemiplegia, unspecified affecting left nondominant side; Z98.891 History of uterine scar from previous surgery; F17.210 Nicotine dependence, cigarettes, uncomplicated; I10 Essential (primary) hypertension; R29.703 NIHSS score 3; E78.2 Mixed hyperlipidemia; M54.30 Sciatica, unspecified side; Z79.899 Other long term (current) drug therapy
CPT/HCPCS: 36415; 70450; 70496; 70498; 70551; 71045; 80048; 80053; 80061; 85025; 85520; 85610; 85670; 85730; 93005; 93306; 93880; 99406; G0378; A9270-GY; J0360; J1644; J2270; Q9967

== ENCOUNTER 2020-11-05 22:04 | Observation (INO) | payer OTHER ==
--- NOTE | 2020-11-05 22:18 | Event Note ---
ED Screening Note Date of service: 11/05/20 Time: 22:17 ED Screening Note: 55-year-old female with a history of a stroke about 2 weeks ago presents to the ER today with complaints of strokelike symptoms. She states that started about 1 hour ago while she was in the shower. She reports slurred speech, drooling and left-sided weakness. She states that she fell twice after her symptoms started and hit her head. She is on Plavix and she has been compliant with it. This initial assessment/diagnostic orders/clinical plan/treatment(s) is/are subject to change based on patients health status, clinical progression and re- assessment by fellow clinical providers in the ED. Further treatment and workup at subsequent clinical providers discretion. Patient/guardian urged not to elope from the ED as their condition may be serious if not clinically assessed and managed. Initial orders include: Stroke order set
--- NOTE | 2020-11-05 22:43 | Consultation ---
History of Present Illness - Reason for Consult Consult date: 11/05/20 - History of Present Illness [facility] Consult Note # Demographics Consult Type: 0-6 hour Stroke First Name: Edie Last Name: Tadeo Date of : 1965 Age: 55 Gender: female Time of initial page ([place] Time): 11-05-2020, 20:22 Time of return call ([place] Time): 11-05-2020, 20:39 # HPI Additional History: 55yo woman who states she went to the bathroom at around 830PM or so. She fell and hit the left side of her head as well as her arm and leg. Symptoms are improved. Associated Symptoms: headache # Scores Time of exam and NIHSS ([facility]): 11-05-2020, 20:32 Level of Consciousness 1a: [0] = Alert; keenly responsive LOC Questions 1b: [0] = Answers both questions correctly LOC Commands 1c: [0] = Performs both tasks correctly Best Gaze 2: [0] = Normal Visual 3: [0] = No visual loss Facial Palsy 4: [0] = Normal symmetrical movements Motor Arm Left 5a: [0] = No drift Motor Arm Right 5b: [0] = No drift Motor Leg Left 6a: [1] = Drift Motor Leg Right 6b: [0] = No drift Limb Ataxia 7: [0] = Absent Sensory 8: [0] = Normal Best Language 9: [0] = No aphasia Dysarthria 10: [0] = Normal Extinction and Inattention 11: [0] = No abnormality NIHSS Total: 1 # PMH-FH-SH Past Medical History: hypertension, stroke, residual left sided weakness, stroke was 2 weeks ago # Exam Vitals: vital signs reviewed # Assessment Impression: Acute Ischemic Stroke, vs uncovering of old deficit due to metabolic or infection issue # Plan Thrombolytic/Intervention: NOT IV Alteplase or IA Intervention Alteplase Exclusion (<3 hour window): non-disabling deficit, stroke within 3 months Intraarterial Exclusion: clinically consistent with small vessel disease, non- disabling Blood Pressure Target: SBP < 220, SBP > 120 Labs: ESR, hemoglobin A1c, lipid panel, urine drug screen, ua Imaging: (urgency: STAT in ED): CT Angiogram Head and CT Angiogram Neck Imaging: (urgency: routine admission): MRI Brain without contrast Diagnostic Test: echo without bubble study Therapy/Evaluation: NPO until swallow evaluation, PT/OT evaluation, speech/swallow consultation Medication: aspirin 81 mg PLUS clopidogrel (Plavix) 75 mg for 21 days, then monotherapy therafter DVT Prophylaxis: SCD, chemical DVT prophylaxis Other: permissive hypertension, telemetry monitoring, I have discussed my recommendations with the referring provider Disposition: admit Medications and Allergies Allergies Allergy/AdvReac Type Severity Reaction Status Date / Time No Known Allergies Allergy Unverified 10/20/20 10:50 Home Medications Medication Instructions Recorded Confirmed Last Taken Type Aspirin 325 mg PO QDAY #30 tablet 10/22/20 Unknown Rx AtorvaSTATin [Lipitor] 40 mg PO QHS #30 tablet 10/22/20 Unknown Rx Clopidogrel [Plavix] 75 mg PO QDAY #30 tablet 10/22/20 Unknown Rx Valsartan [Diovan] 160 mg PO BID #60 tablet 10/22/20 Unknown Rx Exam - Constitutional Vitals: Temp Pulse Resp BP Pulse Ox 97.9 F 83 18 176/99 99 11/05/20 22:19 11/05/20 22:19 11/05/20 22:19 11/05/20 22:19 11/05/20 22:19
--- NOTE | 2020-11-05 22:45 | Emergency Department Report ---
ED Neuro Deficit HPI - General Chief Complaint: Neuro Symptoms/Deficit Stated Complaint: POSSIBLE STROKE Time Seen by Provider: 11/05/20 22:22 Source: patient Mode of arrival: Ambulatory Limitations: No Limitations - History of Present Illness Initial Comments: Patient is a 55-year-old female who presents emergency room with complaints of left-sided weakness, left-sided facial droop and drooling. Patient states she had a stroke approximately 2 weeks ago which left her with some left-sided weakness. Patient states she is normally able to walk with a walker but today she is not. Patient states her last known well time was 8:30 PM. Patient states her symptoms are starting to improve. Patient denies chest pain or shortness of breath. Patient states when she fell in the shower she hit her head. Patient states that her symptoms started and then she was unable to hold herself up she fell in the shower and hit her head. Patient denies fever and chills. Patient denies dizziness. Patient denies blurry vision. Patient denies recent travel. Patient denies recent international travel. Patient denies exposure to the novel coronavirus. Patient denies sick contacts. Patient denies fever and chills. Patient denies cough. Patient denies diarrhea. Patient denies coming in contact with anybody with symptoms of the novel coronavirus. -: Sudden Location: speech, left face, dysarthria, left arm, left leg Presenting Symptoms: Present: Weak/Paralyzed One Side, Sudden, Severe Headache, Facial Droop/Numbness, Unable to Speak Clearly History of same: Yes Place: home Severity: severe Quality: improving Improves With: none Worsens With: none On Anticoagulants: Yes Context: sudden onset Associated Symptoms: headaches, weakness. denies: confusion, chest pain, cough, diaphoresis, fever/chills, loss of appetite, malise, nausea/vomiting, vertigo, seizures, shortness of breath, syncope Treatments Prior to Arrival: none - Related Data Home Medications: Previous Rx's Medication Instructions Recorded Last Taken Type Aspirin 325 mg PO QDAY #30 tablet 10/22/20 Unknown Rx AtorvaSTATin [Lipitor] 40 mg PO QHS #30 tablet 10/22/20 Unknown Rx Clopidogrel [Plavix] 75 mg PO QDAY #30 tablet 10/22/20 Unknown Rx Valsartan [Diovan] 160 mg PO BID #60 tablet 10/22/20 Unknown Rx Allergies/Adverse Reactions: Allergies Allergy/AdvReac Type Severity Reaction Status Date / Time No Known Allergies Allergy Unverified 10/20/20 10:50 ED Review of Systems ROS: Stated complaint: POSSIBLE STROKE Other details as noted in HPI Constitutional: weakness. denies: chills, fever Eyes: denies: eye pain, eye discharge, vision change ENT: denies: ear pain, throat pain Respiratory: denies: cough, shortness of breath, wheezing Cardiovascular: denies: chest pain, palpitations Endocrine: no symptoms reported Gastrointestinal: denies: abdominal pain, nausea, diarrhea Genitourinary: denies: urgency, dysuria, discharge Musculoskeletal: denies: back pain, joint swelling, arthralgia Skin: denies: rash, lesions Neurological: as per HPI, headache, weakness, numbness, abnormal gait Psychiatric: denies: anxiety, depression Hematological/Lymphatic: denies: easy bleeding, easy bruising ED Past Medical Hx - Past Medical History Previous Medical History?: Yes Hx Hypertension: Yes Hx CVA: Yes Hx Congestive Heart Failure: No Hx Diabetes: No Hx Asthma: No Hx COPD: No Hx HIV: No Additional medical history: carpal tunnel - Surgical History Past Surgical History?: Yes Additional Surgical History: - Family History Family history: no significant - Social History Smoking Status: Current Every Day Smoker Substance Use Type: None - Medications Home Medications: Home Medications Medication Instructions Recorded Confirmed Last Taken Type Aspirin 325 mg PO QDAY #30 tablet 10/22/20 Unknown Rx AtorvaSTATin [Lipitor] 40 mg PO QHS #30 tablet 10/22/20 Unknown Rx Clopidogrel [Plavix] 75 mg PO QDAY #30 tablet 10/22/20 Unknown Rx Valsartan [Diovan] 160 mg PO BID #60 tablet 10/22/20 Unknown Rx ED Neuro Physical Exam - General Limitations: No Limitations General appearance: alert, in no apparent distress Suspected Stroke: Yes - Head Head exam: Present: atraumatic, normocephalic - Eye Eye exam: Present: normal appearance - ENT ENT exam: Present: mucous membranes moist - Neck Neck exam: Present: normal inspection - Respiratory Respiratory exam: Present: normal lung sounds bilaterally. Absent: respiratory distress - Cardiovascular Cardiovascular Exam: Present: regular rate, normal rhythm. Absent: systolic murmur, diastolic murmur, rubs, gallop - GI/Abdominal GI/Abdominal exam: Present: soft, normal bowel sounds - Rectal Rectal exam: Present: deferred - Extremities Exam Extremities exam: Present: normal inspection - Back Exam Back exam: Present: normal inspection - Neurological Exam Neurological exam: Present: alert, oriented X3 - NIHSS Assessment Interval: Baseline 1a. Level of Consciousness: alert/keenly responsive 1b. LOC Questions: answers both correctly 1c. LOC Commands: performs tasks correctly 2. Best Gaze: normal 3. Visual: no visual loss 4. Facial Palsy: minor paralysis 5b. Motor Arm Right: no drift 5a. Motor Arm Left: drift 6a. Motor Leg Left: drift 6b. Motor Leg Right: no drift 7. Limb Ataxia: absent 8. Sensory: normal 9. Best Language: no aphasia 10. Dysarthria: normal 11. Extinction/Inattention: no abnormality Total Score: 3 Stroke Severity: Minor Stroke - Psychiatric Psychiatric exam: Present: normal affect, normal mood - Skin Skin exam: Present: warm, dry, intact, normal color. Absent: rash ED Course Vital Signs 11/05/20 11/05/20 22:19 23:41 Temperature 97.9 F Pulse Rate 83 88 Respiratory 18 21 Rate Blood Pressure 176/99 Blood Pressure 162/99 [Left] O2 Sat by Pulse 99 100 Oximetry - Reevaluation(s) Reevaluation #1: Patient is being seen by a neurologist. Patient symptoms appear to be improving. Patient's left arm weakness is improving. Patient's facial droop has resolved. 11/05/20 22:35 Reevaluation #2: I discussed all results with patient. I discussed plan of care with patient. Patient agrees with plan of care and admission. Patient to be admitted to the hospitalist service. 11/06/20 00:51 - Consultations Consultation #1: I discussed case with neurologist. Neurologist not recommend TPA. Neurology recommends admission and stroke work-up. 11/05/20 22:40 Consultation #2: Hospitalist consulted for admission. Hospitalist to admit patient. 11/06/20 00:51 - Lab Data Result diagrams: 11/05/20 22:42 Lab Results 11/05/20 11/05/20 11/05/20 Range/Units 22:16 22:42 22:42 WBC 6.4 (4.5-11.0) K/mm3 RBC 4.20 (3.65-5.03) M/mm3 Hgb 13.2 (10.1-14.3) gm/dl Hct 38.4 (30.3-42.9) % MCV 91 (79-97) fl MCH 31 (28-32) pg MCHC 34 (30-34) % RDW 14.0 (13.2-15.2) % Plt Count 244 (140-440) K/mm3 Lymph % (Auto) 40.0 H (13.4-35.0) % [place] % (Auto) 8.2 H (0.0-7.3) % Eos % (Auto) 3.3 (0.0-4.3) % Baso % (Auto) 0.6 (0.0-1.8) % Lymph # (Auto) 2.5 (1.2-5.4) K/mm3 [place] # (Auto) 0.5 (0.0-0.8) K/mm3 Eos # (Auto) 0.2 (0.0-0.4) K/mm3 Baso # (Auto) 0.0 (0.0-0.1) K/mm3 Seg Neutrophils % 47.9 (40.0-70.0) % Seg Neutrophils # 3.0 (1.8-7.7) K/mm3 PT 12.3 (12.2-14.9) Sec. INR 0.93 (0.87-1.13) APTT 25.9 (24.2-36.6) Sec. Thrombin Time 16.6 (15.1-19.6) Sec. POC Glucose 148 H (70-105) mg/dL Total Creatine Kinase (30-135) units/L CK-MB (CK-2) (0.0-4.0) ng/mL CK-MB (CK-2) Rel Index (0-4) Troponin T (0.00-0.029) ng/mL 11/05/20 Range/Units 22:42 WBC (4.5-11.0) K/mm3 RBC (3.65-5.03) M/mm3 Hgb (10.1-14.3) gm/dl Hct (30.3-42.9) % MCV (79-97) fl MCH (28-32) pg MCHC (30-34) % RDW (13.2-15.2) % Plt Count (140-440) K/mm3 Lymph % (Auto) (13.4-35.0) % [place] % (Auto) (0.0-7.3) % Eos % (Auto) (0.0-4.3) % Baso % (Auto) (0.0-1.8) % Lymph # (Auto) (1.2-5.4) K/mm3 [place] # (Auto) (0.0-0.8) K/mm3 Eos # (Auto) (0.0-0.4) K/mm3 Baso # (Auto) (0.0-0.1) K/mm3 Seg Neutrophils % (40.0-70.0) % Seg Neutrophils # (1.8-7.7) K/mm3 PT (12.2-14.9) Sec. INR (0.87-1.13) APTT (24.2-36.6) Sec. Thrombin Time (15.1-19.6) Sec. POC Glucose (70-105) mg/dL Total Creatine Kinase 257 H (30-135) units/L CK-MB (CK-2) 2.2 (0.0-4.0) ng/mL CK-MB (CK-2) Rel Index 0.8 (0-4) Troponin T < 0.010 (0.00-0.029) ng/mL - EKG Data -: EKG Interpreted by Hi EKG shows normal: sinus rhythm, axis, intervals, QRS complexes, ST-T waves Rate: normal - Radiology Data Radiology results: report reviewed CT head/brain wo con INDICATION: Stroke symptoms. TECHNIQUE: Routine CT head. All CT scans at this location are performed using CT dose reduction for ALARA by means of automated exposure control. COMPARISON: MRI brain from 10/21/2020 FINDINGS: Intracranial: Areas hypoattenuation in the right watershed distribution infarction consistent with evolving known infarction in this territory seen on prior MRI. No new large acute territorial infarction is identified. No hemorrhagic conversion. . No extra axial collec tion. No hydrocephalus. No herniation. Sinuses: Paranasal sinuses and mastoid air cells are essentially clear. Orbits: Globes are intact. Calvarium: No acute fracture. IMPRESSION: 1. Evolution of patient's known right watershed distribution infarction without hemorrhagic conversion. CT angio head, CT angio neck HISTORY: Stroke. COMPARISON: CTA head neck from 10/21/1999. TECHNIQUE: CTA of the neck and head is performed after IV contrast. 3-D/MIP reformats were postprocessed. Percentage stenosis is determined by direct quantitative measurements of diseased internal carotid artery diameter compared with normal distal internal carotid artery reference segments or by criteria similar to NASCET where applicable. All CT scans at this location are performed using CT dose reduction for ALARA by means of automated exposure control. FINDINGS: CTA NECK: Aortic arch: No significant abnormality. Cervical vertebral arteries: No occlusion or hemodynamically significant stenosis. Common Carotid arteries: No occlusion or hemodynamically significant stenosis. Internal carotid arteries: There is a known right internal carotid artery occlusion shortly after its origin extending to the origin of the ophthalmic artery. The ophthalmic artery is patent. CTA HEAD: Intracranial internal carotid arteries: No occlusion or significant stenosis. Anterior cerebral arteries: No occlusion or significant stenosis. Middle cerebral arteries: No occlusion or significant stenosis. Intracranial vertebral arteries: Diminutive right V4 segment is unchanged. No occlusion or significant stenosis. Basilar artery: No occlusion or significant stenosis. Posterior cerebral arteries: No occlusion or significant stenosis. No aneurysm. Additional findings: None. IMPRESSION: 1. No change in the long segment right ICA occlusion just distal to the origin and extending to the ophthalmic artery. There is distal reconstitution through retrograde filling through a patent [place]. - Medical Decision Making Patient is a 55-year-old female who presents emergency room with left-sided weakness, left-sided facial droop and fall while in the shower. Patient states she had a stroke a week ago and had some basic weakness to her left side but was able to walk around with a walker. Patient states while she was in the shower she became acutely weak and lost control of her left side and fell and hit her head in the shower. Patient denies loss of consciousness. Patient denies blurry vision. Patient denies dizziness. Patient had a code stroke initiated in triage. Early in the ER stay, I evaluated the patient. After patient returned back from CT, the neurology saw the patient and the patient's NIH scale improved. Due to the fact the patient had a low score, the neurologist did not recommend TPA but did recommend admission and a stroke and TIA work-up as an inpatient. Patient had labs done which were essentially unremarkable. Patient's head CT is negative for acute findings. Patient had a CTA done per the neurologist recommendation and the CTA showed no changes from previous CTA done a week ago. Patient admitted to the hospital service for further evaluation treatment. Critical care time documented due to the multiple reassessments, prolonged time at the bedside, interpretation of diagnostics and labs and discussing with consultants.. - Differential Diagnosis CVA, TIA, weakness, left-sided weakness, facial droop, fall, head injury Critical Care Time: Yes Critical care time in (mins) excluding proc time.: 35 Critical care attestation.: If time is entered above; I have spent that time in minutes in the direct care of this critically ill patient, excluding procedure time. Critical Care Time: 35 minutes ED Disposition Clinical Impression: Left-sided muscle weakness, Facial droop CVA (cerebral vascular accident) Qualifiers: CVA mechanism: unspecified Qualified Code(s): I63.9 - Cerebral infarction, unspecified Hypertension Qualifiers: Hypertension type: essential hypertension Qualified Code(s): I10 - Essential (primary) hypertension Headache Qualifiers: Headache type: unspecified Headache chronicity pattern: acute headache Intractability: not intractable Qualified Code(s): R51.9 - Headache, unspecified Fall Qualifiers: Encounter type: initial encounter Qualified Code(s): W19.XXXA - Unspecified fall, initial encounter Head injury Qualifiers: Encounter type: initial encounter Qualified Code(s): S09.90XA - Unspecified injury of head, initial encounter Disposition: 09 OP ADMIT IP TO THIS HOSP Is pt being admited?: Yes Does the pt Need Aspirin: No Condition: Critical Instructions: Hypertension (ED) Time of Disposition: 00:51
--- NOTE | 2020-11-05 22:51 | Cat Scan Report ---
CT head/brain wo con INDICATION: Stroke symptoms. TECHNIQUE: Routine CT head. All CT scans at this location are performed using CT dose reduction for A CLAY by means of automated exposure control. COMPARISON: MRI brain from 10/21/2020 FINDINGS: Intracranial: Areas hypoattenuation in the right watershed distribution infarction consistent with ev olving known infarction in this territory seen on prior MRI. No new large acute territorial infarctio n is identified. No hemorrhagic conversion. . No extra axial collection. No hydrocephalus. No herniat ion. Sinuses: Paranasal sinuses and mastoid air cells are essentially clear. Orbits: Globes are intact. Calvarium: No acute fracture. IMPRESSION: 1. Evolution of patient's known right watershed distribution infarction without hemorrhagic conversi on. I called Dr. Grimes about this study. Signer Name: Bartolome Lepe MD Signed: 11/05/2020 10:46 PM Workstation Name: [id number]
[2020-11-05 23:02] LABS: Basophils % (Auto) 0.6 % (0.0-1.8); Eosinophils # (Auto) 0.2 K/mm3 (0.0-0.4); Eosinophils % (Auto) 3.3 % (0.0-4.3); Hematocrit 38.4 % (30.3-42.9); Hemoglobin 13.2 gm/dl (10.1-14.3); Lymphocytes # (Auto) 2.5 K/mm3 (1.2-5.4); Mean Corpuscular HGB Conc 34 % (30-34); Mean Corpuscular Volume 91 fl (79-97); Monocytes # (Auto) 0.5 K/mm3 (0.0-0.8); Monocytes % (Auto) 8.2 % (0.0-7.3); Platelet Count 244 K/mm3 (140-440)
[2020-11-05 23:09] LABS: INR 0.93 (0.87-1.13)
[2020-11-05 23:10] LABS: Partial Thromboplastin Time 25.9 Sec. (24.2-36.6); Thrombin Time 16.6 Sec. (15.1-19.6)
[2020-11-05 23:15] LABS: Creatine Kinase MB 2.2 ng/mL (0.0-4.0)
--- NOTE | 2020-11-06 00:39 | Cat Scan Report ---
CT angio head, CT angio neck HISTORY: Stroke. COMPARISON: CTA head neck from 10/21/1999. TECHNIQUE: CTA of the neck and head is performed after IV contrast. 3-D/MIP reformats were postproces sed. Percentage stenosis is determined by direct quantitative measurements of diseased internal [place] artery diameter compared with normal distal internal carotid artery reference segments or by crit eria similar to NASCET where applicable. All CT scans at this location are performed using CT dose re duction for ALARA by means of automated exposure control. FINDINGS: CTA NECK: Aortic arch: No significant abnormality. Cervical vertebral arteries: No occlusion or hemodynamically significant stenosis. Common Carotid arteries: No occlusion or hemodynamically significant stenosis. Internal carotid arteries: There is a known right internal carotid artery occlusion shortly after its origin extending to the origin of the ophthalmic artery. The ophthalmic artery is patent. CTA HEAD: Intracranial internal carotid arteries: No occlusion or significant stenosis. Anterior cerebral arteries: No occlusion or significant stenosis. Middle cerebral arteries: No occlusion or significant stenosis. Intracranial vertebral arteries: Diminutive right V4 segment is unchanged. No occlusion or significan t stenosis. Basilar artery: No occlusion or significant stenosis. Posterior cerebral arteries: No occlusion or significant stenosis. No aneurysm. Additional findings: None. IMPRESSION: 1. No change in the long segment right ICA occlusion just distal to the origin and extending to the o phthalmic artery. There is distal reconstitution through retrograde filling through a patent [place] f [place]. Signer Name: Bartolome Lepe MD Signed: 11/06/2020 12:35 AM Workstation Name: [id number]
[2020-11-06] MEDS ORDERED: ONDANSETRON 4 MG/2 ML INJ IV PRN ×2 (01:34)
[2020-11-06] MEDS ORDERED: ACETAMINOPHEN 325 MG TAB PO PRN (01:34)
[2020-11-06] MEDS ORDERED: PROMETHAZINE 25 MG RECT SUPP PR PRN (01:34)
[2020-11-06] MEDS ORDERED: MORPHINE 2 MG/1 ML INJ IV PRN (01:34)
[2020-11-06] MEDS ORDERED: MAGNESIUM HYDROXIDE (MOM) ORAL LIQD UDC PO PRN ×2 (01:34)
[2020-11-06] MEDS ORDERED: METOCLOPRAMIDE 10 MG TAB PO PRN (01:34)
--- NOTE | 2020-11-06 01:43 | History and Physical Report ---
History of Present Illness Date of examination: 11/06/20 Date of admission: 11/06/20 00:51 Chief complaint: Left sided weakness History of present illness: 55-year-old female with known history of hypertension, CVA recently discharged from the hospital about a week ago for CVA presenting to the emergency room today complaining of left-sided weakness. Left-sided weakness was said to have started up about 2 hours prior to reporting to the emergency room. She also fell in the shower hitting her head because of the weakness. She denies any loss of consciousness, no headaches and no blurry vision. Patient denies any dizziness. Patient denies any fever or chills, no nausea vomiting, no abdominal pain, no chest pain or shortness of breath. Denies any recent travel, denies any sick contacts and no contact with anyone with COVID-19. Work-up in the emergency room today, CTA of the head and neck are reveals no change in the long segment right ICA occlusion just distal to the origin and extending to the ophthalmic artery. There is distal reconstitution through retrograde filling through the patent [place]. She was evaluated by the tele-neurologist and deemed not to be a TPA candidate. Patient is being admitted for possible CVA. Past History Past Medical History: hypertension, stroke Past Surgical History: , Other (Hypertension surgery) Social history: smoking (Current daily smoker) Family history: no significant family history Medications and Allergies Allergies Allergy/AdvReac Type Severity Reaction Status Date / Time No Known Allergies Allergy Unverified 10/20/20 10:50 Home Medications Medication Instructions Recorded Confirmed Last Taken Type Aspirin 325 mg PO QDAY #30 tablet 10/22/20 Unknown Rx AtorvaSTATin [Lipitor] 40 mg PO QHS #30 tablet 10/22/20 Unknown Rx Clopidogrel [Plavix] 75 mg PO QDAY #30 tablet 10/22/20 Unknown Rx Valsartan [Diovan] 160 mg PO BID #60 tablet 10/22/20 Unknown Rx Review of Systems Ears, nose, mouth and throat: no nasal congestion, no sore throat Cardiovascular: no chest pain, no palpitations Respiratory: no cough, no shortness of breath Gastrointestinal: no abdominal pain, no nausea, no vomiting, no diarrhea Genitourinary Female: no pelvic pain, no flank pain, no dysuria, no hematuria Musculoskeletal: no neck pain, no low back pain Integumentary: no rash, no pruritis Neurological: weakness (Left-sided), balance difficulties, no headaches, no change in speech, no confusion Psychiatric: no anxiety, no depression Endocrine: no polyphagia, no polydipsia, no polyuria, no nocturia Exam - Constitutional Vitals: Temp Pulse Resp BP Pulse Ox 97.9 F 77 21 140/120 100 11/05/20 22:19 11/06/20 01:32 11/06/20 01:32 11/06/20 01:32 11/06/20 01:32 General appearance: Present: no acute distress, well-nourished, obese - EENT Eyes: Present: PERRL, EOM intact. Absent: scleral icterus ENT: hearing intact, clear oral mucosa, dentition normal - Neck Neck: Present: supple, normal ROM - Respiratory Respiratory effort: normal Respiratory: bilateral: CTA - Cardiovascular Rhythm: regular Heart Sounds: Present: S1 & S2. Absent: gallop, systolic murmur, diastolic m urmur, rub, click - Extremities Extremities: no ischemia, pulses intact, pulses symmetrical, No edema, normal temperature, normal color, Full ROM Peripheral Pulses: within normal limits - Abdominal General gastrointestinal: Present: soft, non-tender, non-distended, normal bowel sounds. Absent: mass - Integumentary Integumentary: Present: clear, warm, dry. Absent: rash - Musculoskeletal Musculoskeletal: left sided weakness - Psychiatric Psychiatric: appropriate mood/affect, intact judgment & insight, memory intact, cooperative - Neurologic Neurologic: CNII-XII intact, no focal deficits, moves all extremities HEART Score - HEART Score Troponin: Troponin T < 0.010 ng/mL (0.00-0.029) 11/05/20 22:42 Results - Labs CBC & Chem 7: 11/05/20 22:42 Labs: Abnormal lab results 11/05/20 11/05/20 11/05/20 Range/Units 22:16 22:42 22:42 Lymph % (Auto) 40.0 H (13.4-35.0) % [place] % (Auto) 8.2 H (0.0-7.3) % POC Glucose 148 H (70-105) mg/dL Total Creatine Kinase 257 H (30-135) units/L Assessment and Plan - Patient Problems (1) CVA (cerebral vascular accident) Current Visit: Yes Status: Acute Qualifiers: CVA mechanism: unspecified Qualified Code(s): I63.9 - Cerebral infarction, unspecified Plan to address problem: Patient admitted and placed on daily aspirin and statin. We will schedule for MRI of the brain. We will await further evaluation by neurology. (2) Fall Current Visit: Yes Status: Acute Qualifiers: Encounter type: initial encounter Qualified Code(s): W19.XXXA - Unspecified fall, initial encounter Plan to address problem: Possibly secondary to the left-sided weakness. We will place on fall precautions. We will schedule for physical therapy evaluation. (3) Hypertension Current Visit: Yes Status: Chronic Qualifiers: Hypertension type: essential hypertension Qualified Code(s): I10 - Essential (primary) hypertension Plan to address problem: We will resume routine home medications and monitor vital signs closely. (4) Hyperlipidemia Current Visit: No Status: Chronic Qualifiers: Hyperlipidemia type: mixed hyperlipidemia Qualified Code(s): E78.2 - Mixed hyperlipidemia Plan to address problem: We will monitor lipid profile and continue on statin. (5) DVT prophylaxis Current Visit: No Status: Acute Plan to address problem: Patient placed on subcutaneous heparin. (6) Full code status Current Visit: No Status: Acute Plan to address problem: Patient is full code.
[2020-11-06] MEDS: ACETAMINOPHEN 325 MG TAB PO PRN ×2 (03:10→19:25)
[2020-11-06] MEDS: ASPIRIN 325 MG TAB PO SCH (09:40)
[2020-11-06] MEDS: VALSARTAN 160MG TAB PO SCH ×2 (09:41→21:20)
[2020-11-06] MEDS: CLOPIDOGREL 75 MG TAB PO SCH (09:41)
--- NOTE | 2020-11-06 12:33 | Consultation ---
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 She notes mild improvement today but not back to her new baseline level of weakness. Past History Past Medical History: hypertension, stroke Past Surgical History: , Other (Hypertension surgery) Social history: smoking (Current daily smoker) Family history: no significant family history Medications and Allergies Allergies Allergy/AdvReac Type Severity Reaction Status Date / Time No Known Allergies Allergy Unverified 10/20/20 10:50 Home Medications Medication Instructions Recorded Confirmed Last Taken Type Aspirin 325 mg PO QDAY #30 tablet 10/22/20 11/06/20 Unknown Rx AtorvaSTATin [Lipitor] 40 mg PO QHS #30 tablet 10/22/20 11/06/20 Unknown Rx Clopidogrel [Plavix] 75 mg PO QDAY #30 tablet 10/22/20 11/06/20 Unknown Rx Valsartan [Diovan] 160 mg PO BID #60 tablet 10/22/20 11/06/20 Unknown Rx Active Meds: Active Medications Acetaminophen (Acetaminophen 325 Mg Tab) 650 mg PO Q4H PRN PRN Reason: Pain, Mild (1-3) Last Admin: 11/06/20 03:10 Dose: 650 mg Documented by: Aspirin (Aspirin 325 Mg Tab) 325 mg PO QDAY [facility] Last Admin: 11/06/20 09:40 Dose: 325 mg Documented by: Atorvastatin Calcium (Atorvastatin 40 Mg Tab) 40 mg PO QHS [facility] Bisacodyl (Bisacodyl 10 Mg Rect Supp) 10 mg OR QDAY PRN PRN Reason: Constipation Clopidogrel Bisulfate (Clopidogrel 75 Mg Tab) 75 mg PO QDAY [facility] Last Admin: 11/06/20 09:41 Dose: 75 mg Documented by: Heparin Sodium (Porcine) (Heparin 5,000 Unit/1 Ml Vial) 5,000 unit SUB-Q Q8HR [facility] Magnesium Hydroxide (Magnesium Hydroxide (Mom) Oral Liqd Udc) 30 ml PO Q4H PRN PRN Reason: Constipation Metoclopramide HCl (Metoclopramide 10 Mg Tab) 10 mg PO Q6H PRN PRN Reason: Nausea And Vomiting Morphine Sulfate (Morphine 2 Mg/1 Ml Inj) 2 mg IV Q4H PRN PRN Reason: Pain, Moderate (4-6) Ondansetron HCl (Ondansetron 4 Mg/2 Ml Inj) 4 mg IV Q8H PRN PRN Reason: Nausea And Vomiting Promethazine HCl (Promethazine 25 Mg Rect Supp) 25 mg OR Q6H PRN PRN Reason: Nausea And Vomiting Sodium Chloride (Sodium Chloride 0.9% 10 Ml Flush Syringe) 10 ml IV BID [facility] Last Admin: 11/06/20 09:41 Dose: 10 ml Documented by: Sodium Chloride (Sodium Chloride 0.9% 10 Ml Flush Syringe) 10 ml IV PRN PRN PRN Reason: LINE FLUSH Valsartan (Valsartan 160mg Tab) 160 mg PO BID [facility] Last Admin: 11/06/20 09:41 Dose: 160 mg Documented by: Review of Systems All systems: negative (as per HPI;) Physical Examination - Vital Signs Vital Signs: Vital Signs Temp Pulse Resp BP Pulse Ox 97.9 F 83 18 176/99 99 11/05/20 22:19 11/05/20 22:19 11/05/20 22:19 11/05/20 22:19 11/05/20 22:19 - Physical Exam Narrative exam: Gen: nad, well-nourished; Head: normocephalic; Eyes: no gaze deviation; no ptosis; ENT: normal vocalization; CVS: warm and well-perfused; Pulm: no respiratory distress; GI: appears non-distended, protuberant; Ext: no cyanosis at distal extremities; Skin: no acute rash at distal extremities; Heme: no pathologic bruising at distal extremities; Neuro: alert, oriented to name, age, month, year, no dysarthria, no aphasia, CN 2 - PERRL, visual reeder intact, CN 3, 4, 6 - EOMI, CN 5 - facial sensation symmetric to light touch, CN 7 - facial movement symmetric except mild left nlf deficit, CN 8 - hearing grossly intact, CN 9, 10 - uvula midline, CN 11 - shrug symmetric, CN 12 - tongue midline; Motor - at least 4/5 in all exts except drift at left arm/leg; Sensory - light touch symmetric, Cerebellar - fnf /hts slowed/intact, Gait - left paretic gait; NIHSS (1a.) Level of Consciousness:0 (1b.) LOC Questions:0 (1c.) LOC Commands:0 (2.) Best Gaze:0 (3.) Visual:0 (4.) Facial Palsy:1 (5a.) Motor Arm, Left:1 (5b.) Motor Arm, Right:0 (6a.) Motor Leg, Left:1 (6b.) Motor Leg, Right:0 (7.) Limb Ataxia:0 (8.) Sensory:0 (9.) Best Language:0 (10.) Dysarthria:0 (11.) Extinction and Inattention:0 NIHSS Total Score: 3 Results - Laboratory Findings CBC and BMP: 11/05/20 22:42 Abnormal Lab Findings: Abnormal Labs 11/05/20 11/05/20 11/05/20 22:16 22:42 22:42 Lymph % (Auto) 40.0 H [place] % (Auto) 8.2 H POC Glucose 148 H Total Creatine Kinase 257 H Assessment and Plan 55 yo female with htn, recent ischemic stroke w/ residual left-sided weaknesss w/ right ica occlusion who presents w/ worsening weakness of the left side. 1. Acute Ischemic Stroke vs. Recrudescence of the recent stroke: ASA 325 mg PO qday, Plavix 75 mg PO qday; MRI Brain w/o contrast, check TSH, telemetry, SBP goal 160-200 mmHg and DBP 80-100 mmHg for now and then slowly titrate to SBP of 140 mmHg / DBP 80 mmHg in 24 hours. Statin therapy for a goal LDL of 70, when patient passes swallow evaluation. PT/OT/ST/Swallow evaluation. Long-term risk- factor modification, including a strict diet/exercise regimen for secondary stroke prophylaxis. Followup with Stroke Neurology in 4 weeks. 2. Hypertension - goal SBP 160-200 mmHg and DBP 80-100 mmHg for now and then slowly titrate to SBP of 140 mmHg / DBP 80 mmHg in 24 hours. 3. Left-sided weakness - pt/ot evaluation/monitoring. 4. Unsteady Gait - pt/ot evaluation/monitoring. 5 Tobacco Abuse - smoking cessation program via pcp. Shamar Zacarias MD Neurology
--- NOTE | 2020-11-06 12:38 | Magnetic Resonance Report ---
MR brain wo con INDICATION / CLINICAL INFORMATION: 55 years Female; MAIN. TECHNIQUE: Multiplanar, multisequence MR images of the brain were obtained. COMPARISON: The study is compared to the previous MRI of 10/21/2020. FINDINGS: BRAIN / INTRACRANIAL CONTENTS: There have been interval evolutionary changes of the patchy areas of a cute infarction along the border zone vascular distribution of the right cerebral hemisphere from the previous MRI. However, the findings are also compatible with more acute to infarct along the right c [place] radiata measuring approximately 2.2 cm in AP dimension from the prior study at. There is also a 1 cm focus of increased diffusion signal within the right basal ganglia which appears reflect more s ubacute infarct though has developed from 10/21/2020. There is also suggestion of mild increased diffus ion signal in subacute ischemic changes along the medial right frontal cortex within the right [place] di stribution. The ventricular system is not significant changed in size or configuration. No developing extra-axial fluid collections are identified. CRANIOCERVICAL JUNCTION: No significant abnormality. VASCULAR FLOW-VOIDS: There is continued heterogeneous signal within the distal right ICA compatible w ith occlusion or possibly slow flow. ORBITS: No significant abnormality of visualized orbits. SINUSES / MASTOIDS: There is minimal mucosal thickening within the ethmoid and left sphenoid sinuses. ADDITIONAL FINDINGS: None. IMPRESSION: 1. There have been interval evolutionary changes of the patchy areas of infarction along the border z one vascular distribution of the right cerebral hemisphere as described. However, there has also been interval development of 2.2 cm acute infarct along the right [place] radiata from 10/21/2020. 2. There also appears be a 1 cm focus of subacute infarction involving the right basal ganglia which has developed from the prior study. Is also suggestion of recent ischemic changes along the medial ri ght frontal cortex. 3. There is continued heterogeneous signal within the right ICA compatible with occlusion or possibly very slow flow. Signer Name: Chava Pantoja MD Signed: 11/06/2020 12:34 PM Workstation Name: [id number]
[2020-11-06] MEDS: HEPARIN 5,000 UNIT/1 ML VIAL SUB-Q SCH ×2 (14:48→21:20)
--- NOTE | 2020-11-06 16:58 | Progress Note ---
Subjective Date of service: 11/06/20 Objective - Constitutional Vitals: Vital Signs - 12hr 11/06/20 11/06/20 11/06/20 08:25 09:15 09:54 Temperature 98.4 F Pulse Rate 82 79 Respiratory 18 Rate Blood Pressure 158/90 O2 Sat by Pulse 100 98 Oximetry 11/06/20 11/06/20 11/06/20 10:00 12:54 16:23 Temperature 97.6 F 97.7 F Pulse Rate 79 72 71 Respiratory 18 18 Rate Blood Pressure 152/74 175/95 O2 Sat by Pulse 100 96 Oximetry General appearance: Present: no acute distress, well-nourished - EENT Eyes: PERRL, EOM intact ENT: hearing intact, clear oral mucosa Ears: bilateral: normal - Neck Neck: supple, normal ROM - Respiratory Respiratory effort: normal Respiratory: bilateral: CTA - Breasts Breasts: normal - Cardiovascular Rhythm: regular Heart Sounds: Present: S1 & S2. Absent: gallop, rub Extremities: pulses intact, No edema, normal color, Full ROM - Gastrointestinal General gastrointestinal: Present: soft, non-tender, non-distended, normal bowel sounds - Genitourinary Female genitourinary: normal - Integumentary Integumentary: clear, warm, dry - Musculoskeletal Musculoskeletal: 1, strength equal bilaterally - Neurologic Neurologic: moves all extremities - Psychiatric Psychiatric: memory intact, appropriate mood/affect, intact judgment & insight - Labs CBC & Chem 7: 11/05/20 22:42 Labs: Abnormal lab results 11/05/20 11/05/20 11/05/20 Range/Units 22:16 22:42 22:42 Lymph % (Auto) 40.0 H (13.4-35.0) % [place] % (Auto) 8.2 H (0.0-7.3) % POC Glucose 148 H (70-105) mg/dL Total Creatine Kinase 257 H (30-135) units/L HEART Score - HEART Score Troponin: Troponin T < 0.010 ng/mL (0.00-0.029) 11/05/20 22:42
[2020-11-07] MEDS: ACETAMINOPHEN 325 MG TAB PO PRN ×2 (02:34→20:15)
[2020-11-07] MEDS: HEPARIN 5,000 UNIT/1 ML VIAL SUB-Q SCH ×3 (05:42→21:10)
[2020-11-07 06:29] LABS: Basophils % (Auto) 0.6 % (0.0-1.8); Eosinophils # (Auto) 0.2 K/mm3 (0.0-0.4); Hematocrit 35.5 % (30.3-42.9); Hemoglobin 12.1 gm/dl (10.1-14.3); Lymphocytes # (Auto) 2.1 K/mm3 (1.2-5.4); Lymphocytes % (Auto) 42.4 % (13.4-35.0); Mean Corpuscular HGB Conc 34 % (30-34); Mean Corpuscular Volume 93 fl (79-97); Monocytes # (Auto) 0.5 K/mm3 (0.0-0.8); Monocytes % (Auto) 9.4 % (0.0-7.3); Platelet Count 207 K/mm3 (140-440); Red Blood Count 3.83 M/mm3 (3.65-5.03)
[2020-11-07 06:33] LABS: INR 0.92 (0.87-1.13)
[2020-11-07 06:45] LABS: Blood Urea Nitrogen 14 mg/dL (7-17); Calcium 8.9 mg/dL (8.4-10.2); HDL Cholesterol 44 mg/dL (40-59); Hemolysis Index 0; LDL Cholesterol,Direct 82 mg/dL (50-130)
[2020-11-07 07:17] LABS: BUN/Creatinine Ratio 20
[2020-11-07] MEDS: CLOPIDOGREL 75 MG TAB PO SCH (09:19)
[2020-11-07] MEDS: VALSARTAN 160MG TAB PO SCH ×2 (09:19→21:09)
[2020-11-07] MEDS: ASPIRIN 325 MG TAB PO SCH (09:19)
--- NOTE | 2020-11-07 10:33 | Electrocardiograph Report ---
[facility] Test Date: 2020-11-06 Test Time: 00:42:22 Pat Name: UJ GARCÍA Department: Room: A473 Gender: F Certified Wellness Program Coordinator: : 1965 Requested By: ALBERT PERKINS Order Number: [id number] Reading MD: Roscoe Palomo Measurements Intervals [place] Rate: 74 P: 60 NE: 155 QRS: 0 QRSD: 83 T: 27 QT: 363 QTc: 403 Interpretive Statements Sinus rhythm No previous ECG available for comparison Electronically Signed On 11-07-2020 7:33:02 PDT by Roscoe Palomo
[2020-11-08] MEDS: HEPARIN 5,000 UNIT/1 ML VIAL SUB-Q SCH ×2 (07:00→14:02)
[2020-11-08] MEDS: VALSARTAN 160MG TAB PO SCH (09:24)
[2020-11-08] MEDS: CLOPIDOGREL 75 MG TAB PO SCH (09:24)
[2020-11-08] MEDS: ASPIRIN 325 MG TAB PO SCH (09:24)
[2020-11-08 13:03] VITALS: BP 161/73
--- NOTE | 2020-11-08 14:31 | Progress Note ---
Subjective Date of service: 11/07/20 Objective - Constitutional Vitals: Vital Signs - 12hr 11/08/20 11/08/20 11/08/20 04:06 05:49 08:00 Temperature 97.9 F 97.9 F Pulse Rate 72 76 Respiratory 18 18 Rate Blood Pressure 185/101 Blood Pressure 152/94 [Left] O2 Sat by Pulse 95 Oximetry 11/08/20 11/08/20 11/08/20 09:24 09:38 11:15 Temperature 97.5 F L Pulse Rate 76 76 60 Respiratory 18 Rate Blood Pressure 152/94 161/73 Blood Pressure [Left] O2 Sat by Pulse 92 Oximetry General appearance: Present: no acute distress, well-nourished - EENT Eyes: PERRL, EOM intact ENT: hearing intact, clear oral mucosa Ears: bilateral: normal - Neck Neck: supple, normal ROM - Respiratory Respiratory effort: normal Respiratory: bilateral: CTA - Breasts Breasts: normal - Cardiovascular Rhythm: regular Heart Sounds: Present: S1 & S2. Absent: gallop, rub Extremities: pulses intact, No edema, normal color, Full ROM - Gastrointestinal General gastrointestinal: Present: soft, non-tender, non-distended, normal bowel sounds - Genitourinary Female genitourinary: normal - Integumentary Integumentary: clear, warm, dry - Musculoskeletal Musculoskeletal: 1, strength equal bilaterally - Neurologic Neurologic: moves all extremities - Psychiatric Psychiatric: memory intact, appropriate mood/affect, intact judgment & insight - Labs CBC & Chem 7: 11/07/20 04:52 11/07/20 04:52 HEART Score - HEART Score Troponin: Troponin T < 0.010 ng/mL (0.00-0.029) 11/05/20 22:42
--- NOTE | 2020-11-08 14:32 | Discharge Summary ---
Providers - Providers Date of Admission: 11/06/20 00:51 Date of discharge: 11/08/20 Attending physician: RADHA BUI 11/06/20 01:34 Consult to Dietitian/Nutrition [CONS] Routine Physician Instructions: Reason For Exam: Reason for Consult: Nutrition Recommendations Reason for Consult: Diet education Consult to Physician [CONS] Routine Comment: Consulting Provider: RAYMUNDO LANTIGUA Physician Instructions: Reason For Exam: CVA Occupational Therapy Evaluate and Treat [CONS] Routine Comment: Reason For Exam: Neuro deficits Physical Therapy Evaluation and Treat [CONS] Routine Comment: Reason For Exam: Neuro deficits Primary care physician: FORENSIC COMPUTER EXAMINER Hospitalization Condition: Critical Disposition: DC-01 TO HOME OR SELFCARE Exam - Constitutional Vitals: Temp Pulse Resp BP Pulse Ox 97.5 F L 60 18 161/73 92 11/08/20 11:15 11/08/20 11:15 11/08/20 11:15 11/08/20 11:15 11/08/20 11:15 Plan
== END 2020-11-08 16:00 | disposition home or self-care (01) ==
LOC: ED 22:04 → 4A 11-06 00:51
PROVIDERS: ADMIT Internal Medicine Geriatric Medicine; ATTEND Internal Medicine
DX: I63.9 Cerebral infarction, unspecified (principal); S09.90XA Unspecified injury of head, initial encounter; I10 Essential (primary) hypertension; E78.2 Mixed hyperlipidemia; F17.200 Nicotine dependence, unspecified, uncomplicated; R29.703 NIHSS score 3; R29.810 Facial weakness; R26.81 Unsteadiness on feet; Z98.891 History of uterine scar from previous surgery; Z79.82 Long term (current) use of aspirin; Z98.890 Other specified postprocedural states; Z79.899 Other long term (current) drug therapy; W18.2XXA Fall in (into) shower or empty bathtub, initial encounter; Y93.89 Activity, other specified; Y92.89 Other specified places as the place of occurrence of the external cause; Y99.8 Other external cause status
CPT/HCPCS: 36415; 70450; 70496; 70498; 70551; 80048; 80061; 82550; 82553; 82962; 84484; 85025; 85610; 85670; 85730; 93005; 96372; 96374; 96375; 97161; 97165; 99291; A9270; G0378; J1644; J2270; J2405; Q9967